=== PATIENT | male | born 1995 | race Hispanic/Latino ===

== ENCOUNTER 2023-04-10 17:09 | Observation (INO) | payer SELFPAY ==
--- NOTE | 2023-04-10 17:55 | RAD REPORT ---
EXAM DESCRIPTION: CTAbdomen Pelvis W Contrast - 04/10/2023 5:49 pm CLINICAL HISTORY: Abdominal pain. eval for rectal abscess COMPARISON: <Comparisons> TECHNIQUE: Biphasic CT imaging of the abdomen and pelvis was performed with 100 ml non-ionic IV cont rast. All CT scans are performed using dose optimization technique as appropriate and may include automated exposure control or mA/KV adjustment according to patient size. FINDINGS: The lung bases are clear. The liver, spleen, pancreas, adrenal glands and kidneys are within normal limits. No bowel obstruction, free air, free fluid or abscess. The appendix is normal. No evidence of signi ficant lymphadenopathy. 19 mm perirectal abscess. No suspicious bony findings. IMPRESSION: 19 mm perirectal abscess
[2023-04-10 18:20] LABS: Absolute Lymphocytes (CBC) 1.5 K/uL (0.7-4.9); Hematocrit 40.5 % (39.6-49.0); Lymphocytes % 9.1 % (15.3-44.8); MPV 9.2 fL (7.6-11.3); Platelets 236 thou/uL (152-406); RBC Red Blood Cell Count 4.71 M/uL (4.33-5.43)
[2023-04-10] MEDS ORDERED: KETOROLAC 30 MG/ML INJ ONE (18:29)
[2023-04-10] MEDS ORDERED: NA CHLORIDE 0.9% 1,000 ML ONE (18:29)
[2023-04-10 18:37] LABS: Potassium 3.6 mEq/L (3.5-5.1)
[2023-04-10 18:38] LABS: Albumin 3.5 g/dL (3.4-5.0); Bilirubin Total 0.3 mg/dL (0.2-1.0); Protein, Total 7.3 g/dL (6.4-8.2)
--- NOTE | 2023-04-10 19:05 | EDPHYS ---
Physician Documentation [facility] Name: Luigi Hayward Jr Age: 28 yrs Sex: Male : 1995 Arrival Date: 04/10/2023 Time: 17:09 Bed 5 Private MD: ED Physician Hamilton Phan HPI: 04/10 17:30 This 28 yrs old Male presents to ER via Ambulatory with complaints of Rectal ec2 Pain. 17:30 Patient arrives today for evaluation of rectal pain. States he has been having rectal ec2 pain since last night, stated it is around the rectum on the right side. No fevers or chills, no nausea or vomiting, no abdominal pain. No issues with bloody stool. No history of Crohn's disease or ulcerative colitis. No history of abdominal pathology, no previous abdominal surgeries.. Historical: - Allergies: 17:21 No Known Allergies; ll1 - PMHx: 17:21 None; ll1 - PSHx: 17:21 None; ll1 - Immunization history:: Adult Immunizations up to date. - Social history:: Smoking status: Patient denies any tobacco usage or history of. ROS: 17:30 Constitutional: as per hpi ec2 Exam: 17:30 Constitutional: GEN: NAD Head: atraumatic Eyes: EOMI Ears: External ears are ec2 normal. CV: regular rate LUNGS: no respiratory distress ABD: non-distended. Soft, nontender, no guarding, nonrigid. : Performed under nursing supervision, Kaylyn, induration noted to the right rectum SKIN: no evidence of rashes MSK: no evidence of trauma NEURO: moves all extremities equally Vital Signs: 17:21 BP 146 / 84; Pulse 101; Resp 16; Temp 98.3; Pulse Ox 97% on R/A; Weight 86.18 kg; ll1 Height 5 ft. 7 in. ; Pain 8/10; 18:36 BP 127 / 79; Pulse 97; Resp 16 S; Pulse Ox 97% on R/A; kc6 19:38 BP 122 / 79; Pulse 83; Resp 19; Pulse Ox 100% ; tm6 20:44 BP 134 / 83; Pulse 87; Resp 19; Pulse Ox 100% ; vc1 17:21 Body Mass Index 29.76 (86.18 kg, 170.18 cm) ll1 17:21 Pain Scale: Adult ll1 MDM: 17:20 Patient medically screened. ec2 17:30 Data reviewed: vital signs. ED course: Patient arrives today for evaluation of rectal ec2 pain. Examination remarkable for findings as noted above. Will obtain lab work, CT imaging of the abdomen pelvis to evaluate for deep space abscess.. 18:59 ED course: CT imaging shows perirectal abscess approximately 2 cm in size. Does have ec2 leukocytosis, in conjunction with the documented heart rate, presentation consistent with sepsis secondary to perirectal abscess. Will give antibiotics, admit for continued management, surgery consulted.. 19:38 ED course: EKG independently reviewed and interpreted by me, shows normal sinus rhythm, ec2 rate of 90, no acute ST segment elevations, nonconcerning intervals.. 19:45 ED course: Sepsis reassessment completed.. ec2 04/10 17:29 Order name: CBC with Diff; Complete Time: 18:58 ec2 04/10 17:29 Order name: CMP; Complete Time: 18:58 ec2 04/10 17:29 Order name: Lipase; Complete Time: 18:58 ec2 04/10 18:59 Order name: Blood Culture Adult (2) ec2 04/10 18:59 Order name: Lactate w/ 2H reflex if indic. ec2 04/10 18:59 Order name: Protime (+inr) ec2 04/10 18:59 Order name: Ptt, Activated ec2 04/10 20:25 Order name: Basic Metabolic Panel EDMS 04/10 20:25 Order name: Basic Metabolic Panel EDMS 04/10 20:25 Order name: Basic Metabolic Panel EDMS 04/10 20:25 Order name: Basic Metabolic Panel EDMS 04/10 20:25 Order name: CBC with Automated Diff EDMS 04/10 20:25 Order name: CBC with Automated Diff EDMS 04/10 20:25 Order name: CBC with Automated Diff EDMS 04/10 20:25 Order name: CBC with Automated Diff EDMS 04/10 17:29 Order name: CT Abd/Pelvis - IV Contrast Only; Complete Time: 18:09 ec2 04/10 18:59 Order name: EKG; Complete Time: 19:00 ec2 04/10 20:25 Order name: CONS Physician Consult EDMS 04/10 17:29 Order name: IV Saline Lock; Complete Time: 18:15 ec2 04/10 17:29 Order name: Labs collected and sent; Complete Time: 18:15 ec2 04/10 18:59 Order name: Accucheck; Complete Time: 20:50 ec2 04/10 18:59 Order name: Cardiac monitoring; Complete Time: 19:37 ec2 04/10 18:59 Order name: EKG - Nurse/Tech; Complete Time: 19:38 ec2 04/10 18:59 Order name: IV Saline Lock - Large Bore; Complete Time: 20:32 ec2 04/10 18:59 Order name: O2 Per Protocol; Complete Time: 19:37 ec2 04/10 18:59 Order name: O2 Sat Monitoring; Complete Time: 19:37 ec2 04/10 18:59 Order name: Vital Signs; Complete Time: 19:38 ec2 Administered Medications: 18:34 Drug: NS 0.9% IV 1000 ml IV at 1 bolus Per protocol; 1000 mL bolus Route: IV; Rate: 1 kc6 bolus; Site: right antecubital; 18:35 Drug: TORadol - Ketorolac IVP 15 mg IVP once Route: IVP; Site: right antecubital; kc6 20:32 Drug: Rocephin IV 1 grams IV at calculated rate once; Given slow IV push per pharmacy vc1 instructions Route: IV; Rate: calculated rate; Site: right antecubital; 20:32 Drug: metroNIDAZOLE IVPB 500 mg 100 ml IVPB at 200 ml/hr once over 30 mins Volume: 100 vc1 ml; Route: IVPB; Rate: 200 ml/hr; Infused Over: 30 mins; Site: right antecubital; Disposition Summary: 04/10/23 19:04 Hospitalization Ordered Notes: Hospitalization Status: Inpatient Admission ec2 Provider: Raymundo Gill ec2 Location: Telemetry/MedSurg (Inpatient) ec2 Condition: Stable ec2 Problem: new ec2 Symptoms: have improved ec2 Bed/Room Type: Standard ec2 Room Assignment: 212(04/10/23 20:36) rv1 Diagnosis - Sepsis, unspecified organism ec2 - Anorectal abscess ec2 Forms: - Medication Reconciliation Form ec2 - SBAR form ec2 - Leadership Thank You Letter ec2 Critical care time excluding procedures: 18:59 Critical care time: Bedside Care: 35 minutes, Consultation: 5 minutes. Total time: 40 ec2 minutes Signatures: Dispatcher [employer] Vishnu Garza RN RN ll1 Lisa Paul RN RN ld1 Marge Fisher RN RN vc1 Liz Escalante RN RN kc6 Judith Padilla rv1 Hamilton Phan MD MD ec2 Corrections: (The following items were deleted from the chart) 17:31 17:31 Patient medically screened. ec2 ec2 20:36 19:04 ec2 rv1
--- NOTE | 2023-04-10 19:05 | ER ---
Nurse's Notes [facility] Name: Luigi Hayward Jr Age: 28 yrs Sex: Male : 1995 Arrival Date: 04/10/2023 Time: 17:09 Bed 5 Private MD: Diagnosis: Sepsis, unspecified organism;Anorectal abscess Presentation: 04/10 17:21 Chief complaint: Patient states: Rectal soreness for a few days. Pain got worse last ll1 night. No bumps noticed, no bleeding or discharge. No trauma to area. No fever. Coronavirus screen: Client denies travel out of the [place] in the last 14 days. At this time, the client does not indicate any symptoms associated with coronavirus-19. Ebola Screen: Patient denies travel to an Ebola-affected area in the 21 days before illness onset. Initial Sepsis Screen: Does the patient meet any 2 criteria? No. Patient's initial sepsis screen is negative. Does the patient have a suspected source of infection? Yes: Other: rectal pain. Risk Assessment: Do you want to hurt yourself or someone else? Patient reports no desire to harm self or others. Onset of symptoms was April 08, 2023. 17:21 Method Of Arrival: Ambulatory ll1 17:21 Acuity: DIANE 3 ll1 Triage Assessment: 17:23 General: Appears uncomfortable, Behavior is calm, cooperative, appropriate for age. ll1 Pain: Complains of pain in rectal Pain currently is 8 out of 10 on a pain scale. Quality of pain is described as aching. GI: Reports rectal pain. Historical: - Allergies: 17:21 No Known Allergies; ll1 - PMHx: 17:21 None; ll1 - PSHx: 17:21 None; ll1 - Immunization history:: Adult Immunizations up to date. - Social history:: Smoking status: Patient denies any tobacco usage or history of. Screenin:35 [facility] ED Fall Risk Assessment (Adult) History of falling in the last 3 months, kc6 including since admission No falls in past 3 months (0 pts) Confusion or Disorientation No (0 pts) Intoxicated or Sedated No (0 pts) Impaired Gait No (0 pts) Mobility Assist Device Used No (0 pt) Altered Elimination No (0 pt) Score/Fall Risk Level 0 - 2 = Low Risk. Abuse screen: Denies threats or abuse. Denies injuries from another. Nutritional screening: No deficits noted. Tuberculosis screening: No symptoms or risk factors identified. Assessment: 18:37 General: Appears in no apparent distress. comfortable, well groomed, well developed, kc6 Behavior is calm, cooperative, appropriate for age. Pain: Complains of pain in buttocks. Neuro: Level of Consciousness is awake, alert, obeys commands, Oriented to person, place, time, situation, Appropriate for age. Cardiovascular: Capillary refill < 3 seconds. Respiratory: Airway is patent Trachea midline Respiratory effort is even, unlabored, Respiratory pattern is regular, symmetrical. GI: No signs and/or symptoms were reported involving the gastrointestinal system. : No signs and/or symptoms were reported regarding the genitourinary system. EENT: No signs and/or symptoms were reported regarding the EENT system. Derm: No signs and/or symptoms reported regarding the dermatologic system. Skin is intact, is healthy with good turgor, Skin is pink, warm \T\ dry. Musculoskeletal: No signs and/or symptoms reported regarding the musculoskeletal system. Circulation, motion, and sensation intact. Capillary refill < 3 seconds, Range of motion: intact in all extremities. 19:38 Reassessment: Patient appears in no apparent distress at this time. No changes from tm6 previously documented assessment. 20:44 Reassessment: Patient appears in no apparent distress at this time. No changes from vc1 previously documented assessment. Patient and/or family updated on plan of care and expected duration. Pain level reassessed. Vital Signs: 17:21 BP 146 / 84; Pulse 101; Resp 16; Temp 98.3; Pulse Ox 97% on R/A; Weight 86.18 kg; ll1 Height 5 ft. 7 in. ; Pain 8/10; 18:36 BP 127 / 79; Pulse 97; Resp 16 S; Pulse Ox 97% on R/A; kc6 19:38 BP 122 / 79; Pulse 83; Resp 19; Pulse Ox 100% ; tm6 20:44 BP 134 / 83; Pulse 87; Resp 19; Pulse Ox 100% ; vc1 17:21 Body Mass Index 29.76 (86.18 kg, 170.18 cm) ll1 17:21 Pain Scale: Adult ll1 ED Course: 17:20 Patient arrived in ED. ll1 17:21 Arm band placed on. ll1 17:23 Hamilton Phan MD is Attending Physician. ec2 17:23 Triage completed. ll1 17:51 CT Abd/Pelvis - IV Contrast Only In Process Unspecified. EDMS 18:34 Liz Escalante, RICO is Primary Nurse. kc6 18:35 Patient has correct armband on for positive identification. Bed in low position. Call kc6 light in reach. Side rails up X 1. Adult w/ patient. Client placed on continuous cardiac and pulse oximetry monitoring. NIBP monitoring applied. 18:35 Inserted saline lock: 22 gauge in right antecubital area, using aseptic technique. kc6 Blood collected. Patient maintains SpO2 saturation greater than 95% on room air. 19:04 Raymundo Gill MD is Hospitalizing Provider. ec2 21:37 Provided Education on: NPO for surgeon consult. vc1 21:37 No provider procedures requiring assistance completed. Patient admitted, IV remains in vc1 place. Administered Medications: 18:34 Drug: NS 0.9% IV 1000 ml IV at 1 bolus Per protocol; 1000 mL bolus Route: IV; Rate: 1 kc6 bolus; Site: right antecubital; 18:35 Drug: TORadol - Ketorolac IVP 15 mg IVP once Route: IVP; Site: right antecubital; kc6 20:32 Drug: Rocephin IV 1 grams IV at calculated rate once; Given slow IV push per pharmacy vc1 instructions Route: IV; Rate: calculated rate; Site: right antecubital; 20:32 Drug: metroNIDAZOLE IVPB 500 mg 100 ml IVPB at 200 ml/hr once over 30 mins Volume: 100 vc1 ml; Route: IVPB; Rate: 200 ml/hr; Infused Over: 30 mins; Site: right antecubital; Medication: 21:38 VIS not applicable for this client. vc1 Outcome: 19:04 Decision to Hospitalize by Provider. ec2 21:37 Admitted to Med/surg accompanied by tech, via wheelchair, room 212, Report called to vc1 RICO Stoner 21:37 Condition: good 21:37 Instructed on the need for admit, 22:00 Patient left the ED. vc1 Signatures: Dispatcher [employer] EDMS Vishnu Coronado RN RN [facility] Marge Fisher RN RN 1 Liz Escalante, RN RN kc6 Hamilton Phan MD MD ec2 Jose Roberto Jose, RN RN tm6
[2023-04-10] MEDS ORDERED: METRONIDAZOLE 500mg IVPB 500 MG/100 ML BAG IV ONE (19:52)
[2023-04-10] MEDS ORDERED: CEFTRIAXONE 1000 MG/VIAL ONE (19:52)
[2023-04-10 20:13] LABS: Protime INR 1.17
[2023-04-10] MEDS ORDERED: MAGNESIUM HYDROXIDE 8% 30 ML PO PRN (20:20)
[2023-04-10] MEDS ORDERED: ONDANSETRON 4 MG/2 ML VIAL IV PRN (20:20)
--- NOTE | 2023-04-10 20:25 | P.HP ---
Certification for Inpatient Patient admitted to: Observation With expected LOS: <2 Midnights Practitioner: I am a practitioner with admitting privileges, knowledge of patient current condition, hospital course, and medical plan of care. Services: Services provided to patient in accordance with Admission requirements found in Title 42 Section 412.3 of the Code of Federal Regulations Patient History Date of Service: 04/11/23 Reason for admission: Perirectal abscess. History of Present Illness: 28-year-old male patient with no significant medical history who came to the ED with complaint of pain in the rectal area. He had imaging studies done in the ED was concerning for perirectal abscess which was measured at 19 mm. He was admitted for surgeon evaluation and started on. Pain control medication and empiric antibiotic therapy. He denied no recent trauma to the area or unusual activity. No prior history of rectal abscess. Allergies No Known Allergies Allergy (Unverified 04/10/23 21:08) Home Medications: NK [No Home Meds] 04/10/23 Review of Systems General: Unremarkable Eyes: Unremarkable ENT: Unremarkable Respiratory: Unremarkable Cardiovascular: Unremarkable Gastrointestinal: As per HPI Genitourinary: Unremarkable Musculoskeletal: Unremarkable Integumentary: Unremarkable Neurological: Unremarkable Lymphatics: Unremarkable Physical Examination - Physical Exam General: Alert, Oriented x2 HEENT: Atraumatic Neck: Supple Respiratory: Normal air movement Cardiovascular: Regular rate/rhythm, Normal S1 S2 Gastrointestinal: Non-distended Musculoskeletal: No swelling Neurological: Normal speech, Normal strength at 5/5 x4 extr - Studies Laboratory Data (last 24 hrs) 04/10/23 04/10/23 04/10/23 19:53 18:05 18:05 WBC 16.00 H Hgb 13.7 Hct 40.5 Plt Count 236 PT 12.8 H INR 1.17 APTT 33.8 Sodium 137 Potassium 3.6 BUN 14 Creatinine 1.02 Glucose 107 H Total Bilirubin 0.3 AST 18 ALT 50 Alkaline Phosphatase 89 Lipase 52 Assessment and Plan - Plan Perirectal abscess: Patient has significant finding on imaging. Continue as needed pain control nwith morphine. Continue Zosyn for management. Surgeon to evaluate for I&D. he will be kept n.p.o. Prophylaxis: Lovenox for DVT prophylaxis. CODE STATUS: Full code Disposition: We will treat his parotid abscess and he will be discharged once deemed clinically stable. - Advance Directives Does patient have a Living Will: No Does patient have a Durable POA for Healthcare: No
[2023-04-10 22:16] VITALS: BMI 31.1
[2023-04-10] MEDS: NA CHLORIDE 0.9% 1,000 ML IV SCH (22:47)
[2023-04-11] MEDS: PIPER TAZO 3.375 GM in NA CHLORIDE 0.9% 100 ML IV SCH (01:16)
[2023-04-11] MEDS: ACETAMINOPHEN 325 MG TABLET PO PRN (06:23)
--- NOTE | 2023-04-11 06:54 | P.PN ---
Date of Service: 04/11/23 Subjective: Doing okay. reports rectal pain, feels morphine is helping take edge off Dr. Zaragoza to [facility] for possible I&D no n/v/d. Denies any bleeding Doesn't feel any worse afebrile ROS: 10 point ROS as noted above, otherwise negative Physical Exam: GEN: Alert, oriented, NAD HEENT: Normal conjunctiva, sclera anicteric CV: Regular rate and rhythm, no edema Pulm: Nonlabored respirations on room air, clear bilaterally ABD: Soft, nontender, nondistended Skin: Perirectal abscess with pain/tenderness near site Neuro: Normal speech, normal affect vitals reviewed Problem List: Perirectal Abscess, 19mm CT abdomen (04/10): 19mm Perirectal Abscess General surgery - Dr. Zaragoza consulted to [facility] for I&D NPO for possible I&D today Continue IV Fluids. Blood cx (04/10): pending continue empiric zosyn (04/11-) afebrile, leukocytosis improving PRN milk of magnesia PRN analgesics / antiemetics VTE: Lovenox Code: Full Dispo: Home, ~1-2 days Pending surgery recs, possible I&D
[2023-04-11 07:10] LABS: Absolute Lymphocytes (CBC) 1.4 K/uL (0.7-4.9); Hematocrit 40.2 % (39.6-49.0); Lymphocytes % 10.8 % (15.3-44.8); MCV 86.5 fL (80-100); MPV 9.6 fL (7.6-11.3); Platelets 211 thou/uL (152-406); RBC Red Blood Cell Count 4.65 M/uL (4.33-5.43)
[2023-04-11 07:26] LABS: Potassium 4.4 mEq/L (3.5-5.1)
[2023-04-11] MEDS: ENOXAPARIN 40 MG/0.4 ML SQ SCH (09:00)
[2023-04-11] MEDS: MORPHINE 2 MG/ML SYR IV PRN (10:00)
[2023-04-11] MEDS ORDERED: propofoL 200 MG/20 ML VIAL IV ONE (12:35)
[2023-04-11] MEDS ORDERED: dexAMETHasone 10 MG/ML VIAL ONE (12:35)
[2023-04-11] MEDS ORDERED: KETOROLAC 30 MG/ML INJ ONE (12:35)
[2023-04-11] MEDS ORDERED: ONDANSETRON 4 MG/2 ML VIAL ONE (12:35)
[2023-04-11] MEDS ORDERED: MIDAZOLAM HCL 2 MG/2 ML INJ ONE (12:35)
[2023-04-11] MEDS ORDERED: FENTANYL CITR 100 MCG/2 ML ONE (12:35)
[2023-04-11] MEDS ORDERED: LIDOCAINE 2% MPF 5 ML VIAL ONE (12:35)
--- NOTE | 2023-04-11 14:22 | P.BOP ---
Preoperative diagnosis: perirectal tender abscess Postoperative diagnosis: same Primary procedure: EUA, anoscopy, rigid proctoscopy Secondary procedure: Incision and drainage of perirectal abscess Estimated blood loss: <10cc Specimen: perianal subQ mass possble fistula remnant Findings: right anterolateral abscess going to rectum nearby Anesthesia: General Complications: None Drain(s): Other (1/" iodoform) Transferred to: Recovery Room Condition: Good
[2023-04-11] MEDS ORDERED: HYDROCODONE/APAP 5/325 MG TAB PO PRN (14:24)
[2023-04-11 14:37] VITALS: O2SAT 98
--- NOTE | 2023-04-11 16:23 | CON ---
Date of Consultation: 04/11/2023 Diagnosis: Perianal tenderness. History Of Present Illness: This is the case of a 28-year-old patient who comes to us with perianal pain for least 2 days' duration, mostly on the right anterior lateral area. Etiology of that is unkn own. He denies any Crohn disease, ulcerative colitis. Denies any melena, any recent travel out of [facility] country. Denies any shortness of breath, any chest pain. Review of Systems: 10 points otherwise unremarkable. Allergies: NONE. Medications: None. Surgeries: None. Social History: He does not smoke, he does not drink alcohol. Family History: Noncontributory. Physical Examination: General: The patient is awake, alert. HEENT: Pupils are equal and reactive. Anicteric. Neck: Supple. Chest: Clear. Heart: S1, S2. Abdomen: Soft and depressible. No guarding or rebound. No peritoneal signs. Rectal: Over the area of the perianal region to the right and anterior of the anus, the patient has tenderness. We put a parul in that area. There is a small little lump just to the perineum near that area that may be associated maybe an old fistula in that region. We will take a look under anesthes ia. Extremities: Good capillary refill. Laboratory Data: Blood work shows a WBC count of 16, with hemoglobin of 13.7. INR is 1.17. Total b marcel of 0.3. CAT scan of the abdomen and pelvis interpreted by Dr. Jackman, about 2 cm perirectal absces s. Assessment: Perianal tenderness, perirectal abscess. EUA, anoscopy, proctoscopy, I and D of perirec santiago abscess fully explained, which include, but not limited to infection, bleeding, damage to adjacen t structures, anesthesia complication, anal stricture, anal incontinence, recurrence, ND, even . He also understands this may not relieve his symptoms. He might need more than one surgical interv ention. He understood. QUINCY/JESSICA Voice ID: [id number] Report ID: [id number]
[2023-04-12 03:23] LABS: Absolute Lymphocytes (CBC) 0.8 K/uL (0.7-4.9); Hematocrit 38.8 % (39.6-49.0); Lymphocytes % 4.9 % (15.3-44.8); MCV 85.6 fL (80-100); MPV 9.5 fL (7.6-11.3); Platelets 230 thou/uL (152-406); RBC Red Blood Cell Count 4.53 M/uL (4.33-5.43)
[2023-04-12 03:46] LABS: Potassium 4.3 mEq/L (3.5-5.1)
[2023-04-12 08:46] VITALS: BP 106/57; TEMP 97.7
--- NOTE | 2023-04-12 09:03 | P.DS ---
Admission Date: 04/10/23 Discharge Date: 04/12/23 Disposition: DC HOME/HOME HEALTH CARE Reason for Admission: Perirectal abscess. Consultations: General surgery - Dr. Zaragoza Brief History of Present Illness: 28yo M, PMH: no significant medical history Patient who came to the ED with complaint of pain in the rectal area. He had imaging studies done in the ED was concerning for perirectal abscess which was measured at 19 mm. He was admitted for surgeon evaluation and started on. Pain control medication and empiric antibiotic therapy. He denied no recent trauma to the area or unusual activity. No prior history of rectal abscess. Hospital Course: Problem List: Perirectal Abscess, 19mm, now s/p I&D (04/11) Patient presented with rectal pain / tenderness. Patient was found to have a 19 mm perirectal abscess seen on CT. General surgery was consulted. Patient was taken to the OR on 04/[address] Zaragoza for I&D of perirectal abscess. Surgical wound cultures obtained / pending upon discharge and Dr. Zaragoza will follow up on them. Blood cultures without growth since 04/10. Patient received ~1 day of IV Zosyn while hospitalized and is to complete 10 days of Augmentin on discharge. Advised patient to follow up with Dr. Zaragoza in ~1 week at the wound healing center for continued management on discharge. Patient was monitored post operatively, feeling better, pain improving, remained afebrile throughout hospitalization and was deemed stable for discharge. No need for packing since wound cavity is very superficial. Recommended Bactroban daily and can cover the wound with a simple dressing / bandage. Medications: Augmentin x10 days Tyelonol #3 as needed for pain Follow up: PCP 3-[address] Zaragoza in Wound healing center in ~1 week. Physical Exam: GEN: Alert, oriented, NAD HEENT: Normal conjunctiva, sclera anicteric CV: Regular rate and rhythm, no edema Pulm: Nonlabored respirations on room air, clear bilaterally ABD: Soft, nontender, nondistended Skin: Surgical dressing in place intact Neuro: Normal speech, normal affect Vital Signs/Physical Exam: Temp Pulse Resp BP Pulse Ox 97.7 F 73 16 106/57 L 98 04/12/23 08:00 04/12/23 08:00 04/12/23 08:00 04/12/23 08:00 04/12/23 08:00 Laboratory Data at Discharge: WBC 16.90 thou/uL (4.3-10.9) H 04/12/23 02:42 Hgb 13.4 g/dL (13.6-17.9) L 04/12/23 02:42 Hct 38.8 % (39.6-49.0) L 04/12/23 02:42 Plt Count 230 thou/uL (152-406) 04/12/23 02:42 PT 12.8 SECONDS (9.5-12.5) H 04/10/23 19:53 INR 1.17 04/10/23 19:53 APTT 33.8 SECONDS (24.3-36.9) 04/10/23 19:53 Sodium 140 mEq/L (136-145) 04/12/23 02:42 Potassium 4.3 mEq/L (3.5-5.1) 04/12/23 02:42 BUN 13 mg/dL (7-18) 04/12/23 02:42 Creatinine 0.97 mg/dL (0.70-1.30) 04/12/23 02:42 Glucose 160 mg/dL (74-106) H 04/12/23 02:42 Total Bilirubin 0.3 mg/dL (0.2-1.0) 04/10/23 18:05 AST 18 U/L (15-37) 04/10/23 18:05 ALT 50 U/L (16-61) 04/10/23 18:05 Alkaline Phosphatase 89 U/L (45-117) 04/10/23 18:05 Lipase 52 U/L (13-75) 04/10/23 18:05 Home Medications: Amox/Clavulanate [Augmentin 875-125 Tab] 1 tab PO BID 10 Days #20 tab 04/12/23 Codeine/APAP [Tylenol W/Codeine #3 tab] 1 tab PO Q6HP PRN #10 tab 04/12/23 Mupirocin Oint [Bactroban 2% Ointment] 1 appl TOP DAILY 14 Days #1 ea 04/12/23 New Medications: Codeine/APAP [Tylenol W/Codeine #3 tab] 1 tab PO Q6HP PRN #10 tab PRN Reason: Pain Amox/Clavulanate [Augmentin 875-125 Tab] 1 tab PO BID 10 Days #20 tab Mupirocin Oint [Bactroban 2% Ointment] 1 appl TOP DAILY 14 Days #1 ea Physician Discharge Instructions: Patient presented with rectal pain / tenderness. Patient was found to have a 19 mm perirectal abscess seen on CT. General surgery was consulted. Patient was taken to the OR on 04/[address] Zaragoza for I&D of perirectal abscess. Surgical wound cultures obtained / pending upon discharge and Dr. Zaragoza will follow up on them. Blood cultures without growth since 04/10. Patient received ~1 day of IV Zosyn while hospitalized and is to complete 10 days of Augmentin on discharge. Advised patient to follow up with Dr. Zaragoza in ~1 week at the wound healing center for continued management on discharge. Patient was monitored post operatively, feeling better, pain improving, remained afebrile throughout hospitalization and was deemed stable for discharge. No need for packing since wound cavity is very superficial. Recommended Bactroban daily and can cover the wound with a simple dressing / bandage. Medications: Augmentin x10 days Tyelonol #3 as needed for pain Follow up: PCP 3-[address] Zaragoza in Wound healing center in ~1 week. Followup: NONE,NONE [Primary Care Provider] - Time spent managing pt's care (in minutes): 45
--- NOTE | 2023-04-14 11:06 | EKG ---
Test Date: 2023-04-10 Test Time: 19:34:56 Director Staffing: FRANK MEASUREMENT RESULTS: Intervals: Rate: 90 NM: 154 QRSD: 94 QT: 370 QTc: 452 [place]: P: 53 NM: 154 QRS: 49 T: 34 INTERPRETIVE STATEMENTS: Normal sinus rhythm Cannot rule out Anterior infarct, age undetermined Abnormal ECG No previous ECG available for comparison Electronically Signed On 04-14-23 11:00:27 [employer] by Casey Zhang
== END 2023-04-12 11:47 | disposition home health service (06) ==
LOC: ER 17:09 → 2ND 20:20
PROVIDERS: ADMIT Hospitalist; ATTEND Hospitalist
PROC: 0DJD8ZZ Inspection of Lower Intestinal Tract, Via Natural or Artificial Opening Endoscopic (ICD-10-PCS; 2023-04-11)
PROC: 0D9P0ZX Drainage of Rectum, Open Approach, Diagnostic (ICD-10-PCS; principal; 2023-04-11 14:00)
DX: K61.1 Rectal abscess (principal)
CPT/HCPCS: 36415; 74177; 80048; 80053; 83605; 83690; 85025; 85610; 85730; 87040; 87070; 87075; 87205; 88304; 93005; 96374; 96375; 99285; J0696; J1100; J2001; J2250; J2270; J2405; J2543; J2704; J3010; J7030; Q9967

== ENCOUNTER → 2023-04-13 | Emergency (ER) | payer SELFPAY ==
[~2023-04-13] MED LIST: MORPHINE 4 MG/ML SYR ONE; NA CHLORIDE 0.9% 1,000 ML ONE; NA CHLORIDE 0.9% 100 ML ONE; ONDANSETRON 4 MG/2 ML VIAL ONE; PIPERACIL/TAZO 3.375 GM VIAL IV ONE
[2023-04-13 16:41] LABS: Absolute Lymphocytes (CBC) 1.3 K/uL (0.7-4.9); Hematocrit 41.4 % (39.6-49.0); Lymphocytes % 9.4 % (15.3-44.8); MCV 85.8 fL (80-100); MPV 9.4 fL (7.6-11.3); Platelets 255 thou/uL (152-406); RBC Red Blood Cell Count 4.83 M/uL (4.33-5.43)
[2023-04-13 16:51] LABS: Albumin 3.3 g/dL (3.4-5.0); Bilirubin Total 0.3 mg/dL (0.2-1.0); Potassium 3.5 mEq/L (3.5-5.1); Protein, Total 7.2 g/dL (6.4-8.2)
--- NOTE | 2023-04-13 16:59 | RAD REPORT ---
EXAM DESCRIPTION: CTAbdomen Pelvis W Contrast - 04/13/2023 4:47 pm CLINICAL HISTORY: r/o abscess, rectal pain COMPARISON: Abdomen Pelvis W Contrast dated 04/10/2023 TECHNIQUE: CT of the abdomen and pelvis was performed. All CT scans are performed using dose optimization technique as appropriate and may include automated exposure control or mA/KV adjustment according to patient size. FINDINGS: Lower chest: No acute abnormality. Liver: Hepatic steatosis Biliary: No biliary ductal dilatation. Stomach: No significant focal abnormality. Duodenum: No significant focal abnormality. Pancreas: No significant abnormality. Spleen: No significant abnormality. Adrenal: No suspicious lesions. Kidney/ureter: No hydronephrosis. No renal calculi. 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 Retroperitoneum: No retroperitoneal adenopathy. Vascular: No aneurysm. Bowel: Perianal fluid collection which extends from about the 5:00 to 7:00 o'clock position and measu res approximately 17 mm x 18 mm which is unchanged. Normal appendix.. Peritoneum: No ascites or free air. Bladder: Grossly unremarkable. Reproductive: No adnexal masses. Bones: No acute fracture. Other: n/a IMPRESSION: Unchanged perianal abscess compared with 04/10/2023.
--- NOTE | 2023-04-13 17:19 | ER ---
Nurse's Notes [facility] Name: Luigi Hayward Jr Age: 28 yrs Sex: Male : 1995 Arrival Date: 04/13/2023 Time: 14:18 Bed 2 Private MD: Diagnosis: perianal abscess Presentation: 04/13 14:42 Chief complaint: Spouse and/or significant other states: had rectal abscess surgery, ko1 discharged from here yesterday. Pain is worse now than before. BP was low and so was heart rate at home. Coronavirus screen: At this time, the client does not indicate any symptoms associated with coronavirus-19. Ebola Screen: No symptoms or risks identified at this time. Initial Sepsis Screen: Does the patient meet any 2 criteria? No. Patient's initial sepsis screen is negative. Does the patient have a suspected source of infection? No. Patient's initial sepsis screen is negative. Risk Assessment: Do you want to hurt yourself or someone else? Patient reports no desire to harm self or others. Onset of symptoms was April 13, 2023. 14:42 Method Of Arrival: Wheelchair ko1 14:42 Acuity: DIANE 3 ko1 Triage Assessment: 14:45 General: Appears uncomfortable, Behavior is calm, cooperative, appropriate for age. ko1 Pain: Complains of pain in rectum. Historical: - Allergies: 14:45 No Known Allergies; ko1 - Home Meds: 14:45 Tylenol #3 Oral for pain [Active]; ko1 - PSHx: 14:45 rectal abscess; ko1 - Immunization history:: Adult Immunizations unknown. - Social history:: Smoking status: Patient denies any tobacco usage or history of. Screenin:25 [facility] ED Fall Risk Assessment (Adult) Score/Fall Risk Level 0 - 2 = Low Risk. Abuse iw screen: Denies threats or abuse. Denies injuries from another. Nutritional screening: No deficits noted. Tuberculosis screening: No symptoms or risk factors identified. Assessment: 16:23 General: Appears uncomfortable, Behavior is calm, cooperative. Pain: Complains of pain iw in rectum. Neuro: Level of Consciousness is awake, alert, obeys commands, Oriented to person, place, time, situation, Moves all extremities. Cardiovascular: Patient's skin is warm and dry. Respiratory: Respiratory effort is even, Respiratory pattern is regular, symmetrical. GI: Abdomen is flat, non-distended. GI: Reports increasing rectal pain s/p I\T\D of 19 mm rectal abscess [address] Zaragoza. wound is open, draining , pain 10/10. Derm: Skin is pink, warm \T\ dry. Musculoskeletal: Range of motion: intact in all extremities. 18:38 Reassessment: Patient appears in no apparent distress at this time. Patient and/or iw family updated on plan of care and expected duration. Pain level reassessed. pt signing out AMA, will follow up at [facility]. Vital Signs: 14:42 BP 115 / 78; Pulse 93; Resp 15; Temp 97.4; Pulse Ox 100% ; ko1 18:39 BP 124 / 68; Pulse 89; Resp 16; Pulse Ox 97% on R/A; iw ED Course: 14:21 Patient arrived in ED. im 14:23 Cee Villar FNP-C is PHCP. kb 14:23 Sean Marie MD is Attending Physician. kb 14:45 Triage completed. ko1 14:45 Arm band placed on right wrist. Patient placed in waiting room, Patient notified of ko1 wait time. 16:16 Annel Faith, R[place] is Primary Nurse. iw 16:25 Initial lab(s) drawn, by me, sent to lab. Inserted saline lock: 22 gauge in right iw antecubital area, using aseptic technique. Blood collected. 16:48 CT Abd/Pelvis - IV Contrast Only In Process Unspecified. EDMS 17:18 Flo Parsons MD is Hospitalizing Provider. kb 18:20 PHCP role handed off by Cee Villar FNP-C sb4 18:20 Zahraa Escalera PA-C is PHCP. sb4 18:39 Patient has correct armband on for positive identification. Provided Education on: . iw 18:39 No provider procedures requiring assistance completed. IV discontinued, intact, iw bleeding controlled, No redness/swelling at site. Pressure dressing applied. Administered Medications: 16:16 Drug: NS 0.9% IV 1000 ml IV at 1000 ml once Route: IV; Rate: 1000 ml; Site: right iw antecubital; 16:16 Drug: morphine IVP or IV 4 mg IVP once over 4 mins Route: IVP; Infused Over: 4 mins; iw Site: right antecubital; 16:16 Drug: Ondansetron IVP 4 mg IVP once; over 2 minutes Route: IVP; Site: right antecubital;iw 17:38 Drug: Piperacillin-Tazobactam IVPB 3.375 grams IVPB once over 60 mins; (mix in NS 100 iw mL) Route: IVPB; Infused Over: 60 mins; Site: right antecubital; Outcome: 17:19 Decision to Hospitalize by Provider. kb 18:39 AMA AMA form signed iw 18:39 Condition: unchanged 18:39 Instructed on follow up and referral plans. the need for admit, 18:48 Patient left the ED. iw Signatures: Dispatcher [employer] Cee Cheung, LEONEL-Dyan CASTANEDA-Annel Morrissey, RN RN iw Kavitha Rowe RN RN koZahraa Lomax, PA-C PA-C sb4 Sherrell Pang
--- NOTE | 2023-04-13 17:19 | EDPHYS ---
Physician Documentation [facility] Name: Luigi Hayward Jr Age: 28 yrs Sex: Male : 1995 Arrival Date: 04/13/2023 Time: 14:18 Bed 2 Private MD: ED Physician Sean Marie HPI: 04/13 17:17 This 28 yrs old Male presents to ER via Wheelchair with complaints of Rectal kb Pain - Post surgery 2 days, Dizziness. 17:17 Pt is a 28 year old male who presents with rectal pain that started several days ago. kb States he was seen here and had surgery for a perianal abscess, was discharged yesterday and the pain is worse now. Denies fever. Historical: - Allergies: 14:45 No Known Allergies; ko1 - Home Meds: 14:45 Tylenol #3 Oral for pain [Active]; ko1 - PSHx: 14:45 rectal abscess; ko1 - Immunization history:: Adult Immunizations unknown. - Social history:: Smoking status: Patient denies any tobacco usage or history of. ROS: 17:14 Constitutional: Negative for fever, chills, and weight loss, kb 17:14 Abdomen/GI: Positive for rectal pain, 17:14 All other systems are negative, Exam: 17:14 Constitutional: This is a well developed, well nourished patient who is awake, alert, kb and in no acute distress. Head/Face: Normocephalic, atraumatic. ENT: Moist Mucous membranes Cardiovascular: Regular rate Respiratory: Respirations even and unlabored. No increased work of breathing. Talking in full sentences Skin: Warm, dry with normal turgor. Normal color. MS/ Extremity: Pulses equal, no cyanosis. Neurovascular intact. Full, normal range of motion. Neuro: Awake and alert, GCS 15, oriented to person, place, time, and situation. Moves all extremities. Normal gait. 17:14 Abdomen/GI: Rectal exam: tenderness, that is mild, the spouse/significant other acts as a hairspring setter, surgical incision to perineal area without redness, swelling or drainage. Vital Signs: 14:42 BP 115 / 78; Pulse 93; Resp 15; Temp 97.4; Pulse Ox 100% ; ko1 18:39 BP 124 / 68; Pulse 89; Resp 16; Pulse Ox 97% on R/A; iw MDM: 14:23 Patient medically screened. kb 17:16 Differential diagnosis: hemorrhoids, abscess. Data reviewed: vital signs, nurses notes. kb Consideration of Admission/Observation Patient was admitted/placed on observation. Escalation of care including admission/observation considered. Management of patient was discussed with the following: Hospitalist: Shayan Paz NP. Pt accepted under Dr Parsons. Mime Artist: Dr Zaragoza recommends admission with antibiotics and pain management. Historians other than the Patient: Spouse/Significant Other: . Counseling: I had a detailed discussion with the patient and/or guardian regarding the historical points, exam findings, and any diagnostic results supporting the discharge/admit diagnosis, lab results, radiology results, the need for further work-up and treatment in the hospital. 18:21 ED course: family does not want to be admitted here, prefers to go to [facility]. sb4 they will sign out AMA and go directly there. 04/13 14:46 Order name: CBC with Diff; Complete Time: 16:59 kb 04/13 14:46 Order name: CMP; Complete Time: 16:54 kb 04/13 16:36 Order name: CT Abd/Pelvis - IV Contrast Only; Complete Time: 16:59 kb 04/13 14:46 Order name: IV Start; Complete Time: 16:23 kb Administered Medications: 16:16 Drug: NS 0.9% IV 1000 ml IV at 1000 ml once Route: IV; Rate: 1000 ml; Site: right iw antecubital; 16:16 Drug: morphine IVP or IV 4 mg IVP once over 4 mins Route: IVP; Infused Over: 4 mins; iw Site: right antecubital; 16:16 Drug: Ondansetron IVP 4 mg IVP once; over 2 minutes Route: IVP; Site: right antecubital;iw 17:38 Drug: Piperacillin-Tazobactam IVPB 3.375 grams IVPB once over 60 mins; (mix in NS 100 iw mL) Route: IVPB; Infused Over: 60 mins; Site: right antecubital; Disposition: 19:10 Co-signature as Attending Physician, Sean Marie MD I reviewed the patient's care rt provided by the Advanced Practice Provider and agree with the diagnosis and treatment plan. Disposition Summary: 04/13/23 18:21 Left Against Medical Advice Notes: Location: Home(04/13/23 18:21) sb4 Problem: new(04/13/23 18:21) sb4 Symptoms: are unchanged(04/13/23 18:21) sb4 Condition: Fair(04/13/23 18:21) sb4 Diagnosis - perianal abscess sb4 Followup: sb4 - With: Emergency Department - When: As needed - Reason: Trouble breathing, Worsening of condition Signatures: Dispatcher [employer] EDME Cee Villar, CHAD CASTANEDA-Annel Morrissey, RN RN iw Kavitha Rowe, RN RN ko1 Zahraa Escalera, PAGeoffC PAOrlando sb4 Sean Marie MD MD rt Corrections: (The following items were deleted from the chart) 16:37 14:46 Abdomen Pelvis W Con+CT.RAD.BRZ ordered. EDMS EDMS 18:20 17:19 Inpatient Admission kb sb4 18:20 17:19 Flo Parsons kb sb4 18:20 17:19 Telemetry/MedSurg (Inpatient) kb sb4 18:20 17:19 Stable kb sb4 18:20 17:19 an ongoing problem kb sb4 18:20 17:19 are unchanged kb sb4 18:20 17:19 Standard kb sb4 18:20 17:19 kb sb4 18:20 17:19 Perianal abscess kb sb4
[2023-04-13 19:07] VITALS: BP 124/68; TEMP 97.4; O2SAT 97
== END ==
LOC: ER 14:18
DX: K61.0 Anal abscess (principal)
CPT/HCPCS: 36415; 74177; 80053; 85025; J2405; J2543; J7030; Q9967